=== PATIENT | female | born 1960 | race Caucasian/White ===

== ENCOUNTER → 2024-12-09 14:18 | Outpatient (REF) | payer OTHER, SELFPAY | LOC: HWRAD 14:18 | PROVIDERS: ATTENDING PHYSICIAN Physician Assistant Medical; FAMILY PHYSICIAN Family Medicine | DX: D48.7 Neoplasm of uncertain behavior of other specified sites (principal) | CPT/HCPCS: 71250; 73200 ==

== ENCOUNTER → 2024-12-22 13:36 | Outpatient (REF) | payer OTHER, SELFPAY | LOC: PET 13:36 | PROVIDERS: ATTENDING PHYSICIAN Physician Assistant Medical | DX: R91.8 Other nonspecific abnormal finding of lung field (principal); R93.89 Abnormal findings on diagnostic imaging of other specified body structures | CPT/HCPCS: 78815; A9552 ==

== ENCOUNTER → 2025-03-24 15:13 | Outpatient (REF) | payer OTHER, SELFPAY | LOC: RAD 15:13 | PROVIDERS: ATTENDING PHYSICIAN Internal Medicine Critical Care Medicine; FAMILY PHYSICIAN Family Medicine | DX: R91.8 Other nonspecific abnormal finding of lung field (principal) | CPT/HCPCS: 71250 ==

== ENCOUNTER 2025-05-15 06:06 | Day surgery (SDC) | payer OTHER, SELFPAY ==
[2025-05-10 09:06] LABS: Hematocrit 41.7 % (37.0-47.0); Hemoglobin 13.4 g/dL (12.0-16.0); Mean Corp Hgb Conc. 32.1 g/dL (33.0-37.0); Mean Corpuscular Volume 87.4 fL (81.0-99.0); Platelet Count 193 10^3/uL (130-400); Red Cell Dist. Width 13.2 % (11.5-14.5)
[2025-05-10 09:09] LABS: APTT 26.7 Sec (23.4-35.0); INR 0.96; PT 13.3 Sec (11.4-14.6)
[2025-05-10 10:15] LABS: Blood Urea Nitrogen 17 mg/dl (7-17); Calcium 10.0 mg/dl (8.4-10.2); Carbon Dioxide 27 mmol/L (22-30); Chloride 105 mmol/L (98-107); Glucose 110 mg/dl (70-99); Potassium 5.0 mmol/L (3.5-5.1); Sodium 140 mmol/L (135-145); eGFR > 60.00
[2025-05-10 13:59] VITALS: BMI 30.8
[2025-05-15] VITALS (8 sets, daily range): BP systolic 126–145; BP diastolic 77–85; BMI 30.8
[2025-05-15] MEDS: NSS 500 IV (11:28)
== END 2025-05-15 14:10 | disposition home or self-care (01) ==
LOC: GI 06:06
PROVIDERS: ATTENDING PHYSICIAN Internal Medicine Critical Care Medicine; PRIMARYCARE PHYSICIAN Family Medicine
DX: R91.1 Solitary pulmonary nodule (principal); D14.31 Benign neoplasm of right bronchus and lung; R84.6 Abnormal cytological findings in specimens from respiratory organs and thorax
CPT/HCPCS: 31629; 31623; 31624; 31625; 31627; 31654; 36415; 71045; 76000; 80048; 85027; 85610; 85730; 88112; 88173; 88305; 93005; C1887